=== PATIENT | male | born 1960 | race Native Hawaiian/Other Pacific Islander ===

== ENCOUNTER 2020-05-05 11:50 | Emergency (ER) | payer MEDICARE, OTHER ==
[~2020-05-05] VITALS: Ht 170.2 cm; Wt 84.5 kg
[2020-05-05 11:55] VITALS: BP 123/78
[2020-05-05] MEDS ORDERED: IBUPROFEN 400 MG TABLET PO ONE (12:45)
[2020-05-05] MEDS ORDERED: ASPI-728 PO (13:24)
[2020-05-05] MEDS ORDERED: OMEP20 PO (13:24)
[2020-05-05] MEDS ORDERED: AMLO-257 PO (13:24)
[2020-05-05] MEDS ORDERED: METF-960 PO (13:24)
[2020-05-05] MEDS ORDERED: VALS160T2 PO (13:24)
[2020-05-05] MEDS ORDERED: BETA50CR5 TP (13:24)
[2020-05-05] MEDS ORDERED: ATOR40TA28 PO (13:24)
== END 2020-05-05 15:18 | disposition home or self-care (01) ==
LOC: EMS 11:50
DX: M25.462 Effusion, left knee (principal); M25.561 Pain in right knee; M25.461 Effusion, right knee
CPT/HCPCS: 93971

== ENCOUNTER → 2020-05-13 | Outpatient (CLI) | payer MEDICARE, OTHER ==
[~2020-05-13] MED LIST: AMLO-257 PO; ASPI-728 PO; ATOR40TA28 PO; BETA50CR5 TP; METF-960 PO; OMEP20 PO; VALS160T2 PO
== END | disposition home or self-care (01) ==
LOC: RADMN 11:59
PROVIDERS: ATTEND Internal Medicine
DX: M25.471 Effusion, right ankle (principal)
CPT/HCPCS: 73610-TC